=== PATIENT | female | born 1955 | race African-American/Black ===

== ENCOUNTER 2024-06-07 21:54 | Emergency (ER) | payer OTHER ==
[~2024-06-07] VITALS: Ht 149.9 cm; Wt 63.5 kg
[2024-06-07 21:56] VITALS: BP 130/94; PULSE 120; RESP 16; TEMP 98.4; O2SAT 96
[2024-06-07 22:28] VITALS: BP 130/94; PULSE 120; RESP 16; TEMP 98.4
[2024-06-07] MEDS: NACL 0.9% 1,000 ML IV ONE (22:44)
[2024-06-07 22:45] LABS: BASOPHILS % (AUTO) 0.3 % (0.0-2.0); EOSINOPHILS # (AUTO) 0.1 K/uL (0-0.4); HEMATOCRIT 44.5 % (36-48); HEMOGLOBIN 14.9 g/dL (12.0-16.0); LYMPHOCYTES # (AUTO) 1.2 K/uL (2.5-16.5); LYMPHOCYTES % (AUTO) 25.8 % (20.5-51.1); MEAN CORPUSCULAR HEMOGLOBIN 28 pg (27-31); MEAN CORPUSCULAR HGB CONC 34 g/dL (33-37); MONOCYTES # (AUTO) 0.6 K/uL (0.8-1.0); MONOCYTES % (AUTO) 12.7 % (1.7-9.3); NEUTROPHILS # (AUTO) 2.8 K/uL (1.8-7.7); NEUTROPHILS % (AUTO) 59.2 % (42.2-75.2); PLATELET COUNT (AUTO) 244 K/uL (140-450); RED BLOOD CELL COUNT(AUTO) 5.36 MIL/uL (4.20-5.40); RED CELL DISTRIBUTION WIDTH 14.7 % (11.6-13.7); WHITE BLOOD COUNT (AUTO) 4.8 K/uL (4.8-10.8)
[2024-06-07 22:46] VITALS: O2SAT 98
[2024-06-07] MEDS: ONDANSETRON 4 MG/2 ML VIAL IVP ONE (22:49)
[2024-06-07 22:54] VITALS: O2SAT 98
[2024-06-07 22:59] LABS: ANION GAP 13.8 (8-16); CALCIUM 9.5 mg/dL (8.5-10.1); CARBON DIOXIDE 27.2 mmol/L (21-32)
[2024-06-07 23:13] LABS: ALBUMIN 3.7 g/dL (3.4-5.0); TOTAL BILIRUBIN 0.6 mg/dL (0.0-1.0); TOTAL PROTEIN, SERUM 8.1 g/dL (6.4-8.2)
[2024-06-07] MEDS ORDERED: ONDA-188 SL (23:40)
== END 2024-06-07 23:53 | disposition home or self-care (01) ==
LOC: MED 21:54
DX: R11.2 Nausea with vomiting, unspecified (principal); R19.7 Diarrhea, unspecified; I10 Essential (primary) hypertension; Z79.899 Other long term (current) drug therapy
CPT/HCPCS: 36415; 80053; 83690; 85025; 96361; 96374; 99283; J2405; J7030